=== PATIENT | male | born 1955 | race Asian ===

== ENCOUNTER 2023-04-16 14:46 | Emergency (ER) | payer MEDICARE ==
[~2023-04-16] VITALS: Ht 172.7 cm; Wt 76.1 kg
[2023-04-16 16:44] VITALS: BP 153/93
[2023-04-16] MEDS ORDERED: CYCL-837 PO ×3 (16:44→18:05)
[2023-04-16] MEDS ORDERED: ACET-1079 PO ×3 (16:44→18:05)
== END 2023-04-16 16:53 | disposition home or self-care (01) ==
LOC: ER 14:46
DX: S46.911A Strain of unspecified muscle, fascia and tendon at shoulder and upper arm level, right arm, initial encounter (principal); Z79.899 Other long term (current) drug therapy; X58.XXXA Exposure to other specified factors, initial encounter; Y93.89 Activity, other specified; Y92.89 Other specified places as the place of occurrence of the external cause; Y99.8 Other external cause status
CPT/HCPCS: 73030